=== PATIENT | male | born 1985 | race Two or more races ===

== ENCOUNTER 2017-01-20 09:15 | Inpatient (IN) | payer BC, OTHER ==
[~2017-01-20] VITALS: Ht 193 cm; Wt 119.3 kg
[2017-01-20 10:22] LABS: Basophils # (auto) 0.1 uL; Basophils % (auto) 0.3 % (0.0-2.0); Eosinophils # (auto) 0 uL; Hematocrit 38.4 % (41.0-53.0); Hemoglobin 12.8 g/dL (13.5-17.5); Lymphocytes # (auto) 1.2 uL; Lymphocytes % (auto) 7.3 % (10.0-50.0); Mean Corpuscular Hemoglobin 30.5 pg (28.0-32.0); Mean Corpuscular Hgb Conc. 33.4 g/dL (32.0-36.0); Mean Corpuscular Volume 91.4 fL (80.0-100.0); Mean Platelet Volume 7.9 fL (7.4-10.4); Monocytes # (auto) 0.4 uL; Monocytes % (auto) 2.5 % (0.0-12.0); Neutrophils # (auto) 14.3 uL; Neutrophils % (auto) 89.9 % (37.0-80.0); Platelet Count (auto) 435 10^3/uL (140-450); Red Cell Distribution Width 13.5 % (11.6-16.0)
[2017-01-20] MEDS ORDERED: ONDANSETRON HCL 4 MG/2 ML VIAL ONE (10:35)
[2017-01-20 10:38] LABS: Urine Bilirubin Negative (Negative); Urine Blood Negative /uL (Negative); Urine Color Yellow (Yellow); Urine Glucose Normal (Normal); Urine Mucus FEW (None Seen); Urine Nitrite Negative (Negative); Urine RBC 1 /hpf (0 - 3); Urine Squamous Epithelial Cell FEW /hpf (<5); Urine Urobilinogen Normal (Negative); Urine pH 8.5 (5.0-8.0)
[2017-01-20 10:39] LABS: Urine Ketone 1+ (Negative)
[2017-01-20] MEDS ORDERED: ONDANSETRON HCL 4 MG/2 ML VIAL IV ONE (10:45)
[2017-01-20 10:46] LABS: Albumin 4.5 g/dL (3.4-5.0); Bilirubin, Total 0.4 mg/dL (0.2-1.0); Calcium 9.4 mg/dL (8.5-10.1); Potassium 3.5 mmol/L (3.5-5.1); Total Protein 7.9 g/dL (6.4-8.2)
[2017-01-20] MEDS ORDERED: SODIUM CHLORIDE 0.9% 1,000 ML IVB ONE (11:10)
[2017-01-20 11:36] LABS: INR 0.98 (0.9-1.15); Partial Thromboplastin Time 25.8 sec (22.64-33.71); Prothrombin Time 10.7 sec (9.37-12.3)
[2017-01-20] MEDS ORDERED: MORPHINE SULF INJ 2 MG/ML SYRINGE 1ML IV ONE (11:45)
[2017-01-20] MEDS ORDERED: PANTOPRAZOLE SODIUM 40 MG/10 ML VIAL IV ONE (11:45)
[2017-01-20] MEDS ORDERED: SODIUM CHLORIDE 0.9% 2,000 ML IV ONE (11:45)
[2017-01-20] MEDS ORDERED: LORazepam 2MG/ML-1ML VIAL ONE (12:02)
[2017-01-20] MEDS ORDERED: LORazepam 2MG/ML-1ML VIAL IV ONE (12:15)
[2017-01-20] MEDS ORDERED: DEXTROSE (50%) 50ML SYRG IV PRN (14:15)
[2017-01-20] MEDS ORDERED: cloNIDine HCL 0.1 MG TAB PO PRN (14:15)
[2017-01-20] MEDS ORDERED: cefTRIAXone 1GM/50ML D5W 50 ML IV ONE (14:15)
[2017-01-20] MEDS ORDERED: HYDROcodone-ACET 5/325MG TAB PO PRN (14:30)
[2017-01-20] MEDS ORDERED: ACETAMINOPHEN 325 MG TAB PO PRN (14:30)
[2017-01-20] MEDS ORDERED: TEMAZEPAM 15 MG CAP PO PRN (14:30)
[2017-01-20] MEDS ORDERED: ONDANSETRON HCL 4 MG/2 ML VIAL IV PRN (14:30)
[2017-01-20] MEDS ORDERED: NITROGLYCERIN 0.4 MG SL TAB SL PRN (14:30)
[2017-01-20] MEDS ORDERED: MORPHINE SULF INJ 2 MG/ML SYRINGE 1ML IV PRN (14:30)
[2017-01-20] MEDS: SODIUM CHLORIDE 0.9% 1,000 ML IV SCH ×2 (14:40→17:24)
[2017-01-20] MEDS: MORPHINE SULF INJ 2 MG/ML SYRINGE 1ML IV PRN ×2 (14:40→21:37)
[2017-01-20] MEDS ORDERED: PROMETHAZINE HCL 25 MG/ML 1ML ONE (14:55)
[2017-01-20] MEDS: FAMOTIDINE 20 MG TAB PO SCH ×2 (15:07→21:39)
[2017-01-20] MEDS: PROMETHAZINE HCL 25 MG/ML 1ML IV PRN ×2 (15:07→21:38)
[2017-01-20] MEDS: metroNIDAZOLE 500MG/100ML 100 ML IV SCH ×2 (15:12→21:38)
[2017-01-20] MEDS: ACCU-CHEK COMFORT CURVE STRIP VI SCH ×2 (17:00→21:30)
[2017-01-20] MEDS: InsuLIN REG 1unit/0.01ml Soln (100units/ml) SC SCH ×2 (17:00→21:30)
[2017-01-20] MEDS ORDERED: PROM25TA5 PO (17:38)
[2017-01-20] MEDS ORDERED: DICY10CA12 PO (17:38)
[2017-01-20] MEDS: DICYCLOMINE HCL 10 MG CAP PO SCH ×2 (18:06→21:39)
[2017-01-20 21:43] VITALS: BP 134/60
[2017-01-21] MEDS: PROMETHAZINE HCL 25 MG/ML 1ML IV PRN ×5 (03:41→23:33)
[2017-01-21 04:55] VITALS: BP 119/58
[2017-01-21] MEDS: DICYCLOMINE HCL 10 MG CAP PO SCH ×4 (06:00→22:00)
[2017-01-21] MEDS: metroNIDAZOLE 500MG/100ML 100 ML IV SCH ×3 (06:03→22:35)
[2017-01-21] MEDS: ACCU-CHEK COMFORT CURVE STRIP VI SCH ×4 (06:04→22:00)
[2017-01-21] MEDS: SODIUM CHLORIDE 0.9% 1,000 ML IV SCH ×3 (06:04→23:37)
[2017-01-21] MEDS: InsuLIN REG 1unit/0.01ml Soln (100units/ml) SC SCH ×4 (06:04→22:00)
[2017-01-21 06:55] LABS: Basophils # (auto) 0 uL; Eosinophils # (auto) 0.1 uL; Eosinophils % (auto) 0.4 % (0.0-7.0); Hematocrit 32.3 % (41.0-53.0); Hemoglobin 10.9 g/dL (13.5-17.5); Lymphocytes # (auto) 1.5 uL; Mean Corpuscular Hemoglobin 30.9 pg (28.0-32.0); Mean Corpuscular Hgb Conc. 33.7 g/dL (32.0-36.0); Mean Corpuscular Volume 91.7 fL (80.0-100.0); Mean Platelet Volume 7.9 fL (7.4-10.4); Monocytes % (auto) 6.6 % (0.0-12.0); Neutrophils # (auto) 12.7 uL; Platelet Count (auto) 309 10^3/uL (140-450); Red Cell Distribution Width 13.6 % (11.6-16.0); White Blood Cell 15.3 10^3/uL (4.4-10.8)
[2017-01-21 07:08] LABS: Potassium 3.1 mmol/L (3.5-5.1)
[2017-01-21 07:15] LABS: Albumin 3.4 g/dL (3.4-5.0); BUN/Creatinine Ratio 11.9; Calcium 8.2 mg/dL (8.5-10.1)
[2017-01-21 07:17] LABS: Bilirubin, Total 0.3 mg/dL (0.2-1.0); Total Protein 6.4 g/dL (6.4-8.2)
[2017-01-21 09:00] VITALS: BP 121/71
[2017-01-21] MEDS: MULTIPLE VITAMIN TAB PO SCH (09:17)
[2017-01-21] MEDS: cefTRIAXone 1GM/50ML D5W 50 ML IV SCH (09:17)
[2017-01-21] MEDS: FAMOTIDINE 20 MG TAB PO SCH (09:17)
[2017-01-21] MEDS: MORPHINE SULF INJ 2 MG/ML SYRINGE 1ML IV PRN ×2 (12:49→22:34)
[2017-01-21 13:00] VITALS: BP 176/71
[2017-01-21] MEDS: PANTOPRAZOLE SODIUM 40 MG/10 ML VIAL IV SCH ×2 (14:30→22:35)
[2017-01-21 17:00] VITALS: BP 140/77
[2017-01-21 21:56] VITALS: BP 137/69
[2017-01-22 05:00] VITALS: BP 128/73
[2017-01-22] MEDS: ACCU-CHEK COMFORT CURVE STRIP VI SCH ×4 (06:00→22:08)
[2017-01-22] MEDS: DICYCLOMINE HCL 10 MG CAP PO SCH ×4 (06:00→22:39)
[2017-01-22] MEDS: InsuLIN REG 1unit/0.01ml Soln (100units/ml) SC SCH ×4 (06:00→22:00)
[2017-01-22] MEDS: metroNIDAZOLE 500MG/100ML 100 ML IV SCH (06:11)
[2017-01-22 07:47] LABS: Basophils # (auto) 0 uL; Basophils % (auto) 0.4 % (0.0-2.0); Eosinophils # (auto) 0 uL; Eosinophils % (auto) 0.4 % (0.0-7.0); Hemoglobin 10.5 g/dL (13.5-17.5); Lymphocytes # (auto) 2.9 uL; Lymphocytes % (auto) 27.2 % (10.0-50.0); Mean Corpuscular Hemoglobin 30.9 pg (28.0-32.0); Mean Corpuscular Hgb Conc. 33.8 g/dL (32.0-36.0); Mean Corpuscular Volume 91.4 fL (80.0-100.0); Mean Platelet Volume 7.7 fL (7.4-10.4); Monocytes # (auto) 0.9 uL; Monocytes % (auto) 8.3 % (0.0-12.0); Neutrophils # (auto) 6.9 uL; Neutrophils % (auto) 63.7 % (37.0-80.0); Platelet Count (auto) 287 10^3/uL (140-450); Red Cell Distribution Width 13.3 % (11.6-16.0); White Blood Cell 10.8 10^3/uL (4.4-10.8)
[2017-01-22] MEDS: SODIUM CHLORIDE 0.9% 1,000 ML IV SCH ×2 (07:57→16:17)
[2017-01-22 08:08] LABS: Albumin 3.2 g/dL (3.4-5.0); BUN/Creatinine Ratio 13.3; Potassium 3.1 mmol/L (3.5-5.1)
[2017-01-22 08:12] LABS: Bilirubin, Total 0.3 mg/dL (0.2-1.0); Total Protein 6.4 g/dL (6.4-8.2)
[2017-01-22 09:05] VITALS: BP 120/69
[2017-01-22] MEDS: cefTRIAXone 1GM/50ML D5W 50 ML IV SCH (10:04)
[2017-01-22] MEDS: PANTOPRAZOLE SODIUM 40 MG/10 ML VIAL IV SCH ×2 (10:04→22:02)
[2017-01-22] MEDS: MULTIPLE VITAMIN TAB PO SCH (10:04)
[2017-01-22] MEDS: PROMETHAZINE HCL 25 MG/ML 1ML IV PRN ×2 (10:05→19:53)
[2017-01-22] MEDS: MORPHINE SULF INJ 2 MG/ML SYRINGE 1ML IV PRN ×2 (10:05→19:53)
[2017-01-22 12:12] VITALS: BP 142/83
[2017-01-22] MEDS ORDERED: LIDOCAINE VISCOUS 2% 15ML UD ONE (13:42)
[2017-01-22] MEDS ORDERED: diphenhdrAMINE HCL 50 MG/1 ML VL ONE (13:42)
[2017-01-22] MEDS ORDERED: SODIUM CHLORIDE LOCK 10 ML ONE (13:42)
[2017-01-22] MEDS: MIDAZOLAM HCL 5 MG/ML-1ML VIAL ONE ×2 (14:28→14:31)
[2017-01-22] MEDS: fentaNYL CITRATE 100 MCG/2 ML VL ONE ×2 (14:28→14:31)
[2017-01-22 16:59] VITALS: BP 142/76
[2017-01-22 22:00] VITALS: BP 127/72
[2017-01-23] MEDS: SODIUM CHLORIDE 0.9% 1,000 ML IV SCH ×3 (00:56→17:14)
[2017-01-23 05:00] VITALS: BP 135/81
[2017-01-23] MEDS ORDERED: POTASSIUM CHL 20 Meq TABLET PO ONE (05:15)
[2017-01-23] MEDS: DICYCLOMINE HCL 10 MG CAP PO SCH ×4 (05:43→21:44)
[2017-01-23 06:02] LABS: Basophils # (auto) 0.1 uL; Basophils % (auto) 0.8 % (0.0-2.0); Eosinophils # (auto) 0.4 uL; Eosinophils % (auto) 3.3 % (0.0-7.0); Hemoglobin 11.1 g/dL (13.5-17.5); Lymphocytes # (auto) 2.8 uL; Lymphocytes % (auto) 25.3 % (10.0-50.0); Mean Corpuscular Hemoglobin 30.5 pg (28.0-32.0); Mean Corpuscular Hgb Conc. 33.7 g/dL (32.0-36.0); Mean Corpuscular Volume 90.7 fL (80.0-100.0); Mean Platelet Volume 7.8 fL (7.4-10.4); Monocytes # (auto) 0.7 uL; Monocytes % (auto) 6.4 % (0.0-12.0); Neutrophils # (auto) 7.1 uL; Neutrophils % (auto) 64.2 % (37.0-80.0); Platelet Count (auto) 298 10^3/uL (140-450); Red Cell Distribution Width 13.2 % (11.6-16.0)
[2017-01-23] MEDS: InsuLIN REG 1unit/0.01ml Soln (100units/ml) SC SCH ×4 (06:24→21:44)
[2017-01-23 06:27] LABS: BUN/Creatinine Ratio 10.5; Calcium 7.8 mg/dL (8.5-10.1); Potassium 3.1 mmol/L (3.5-5.1)
[2017-01-23] MEDS: MORPHINE SULF INJ 2 MG/ML SYRINGE 1ML IV PRN ×2 (06:32→12:52)
[2017-01-23] MEDS: PROMETHAZINE HCL 25 MG/ML 1ML IV PRN ×3 (06:32→21:17)
[2017-01-23] MEDS: ACCU-CHEK COMFORT CURVE STRIP VI SCH ×4 (06:33→21:44)
[2017-01-23 09:00] VITALS: BP 140/76
[2017-01-23] MEDS: PANTOPRAZOLE SODIUM 40 MG/10 ML VIAL IV SCH ×2 (09:42→21:43)
[2017-01-23] MEDS: MULTIPLE VITAMIN TAB PO SCH (09:43)
[2017-01-23 12:40] VITALS: BP 146/77
[2017-01-23 17:00] VITALS: BP 150/92
[2017-01-23 20:00] VITALS: BP 138/80
[2017-01-23 22:00] VITALS: BP 138/80
[2017-01-24] MEDS: SODIUM CHLORIDE 0.9% 1,000 ML IV SCH ×4 (01:37→22:00)
[2017-01-24] MEDS: DICYCLOMINE HCL 10 MG CAP PO SCH ×4 (05:59→22:10)
[2017-01-24 06:00] VITALS: BP 133/76
[2017-01-24] MEDS: ACCU-CHEK COMFORT CURVE STRIP VI SCH ×3 (06:51→17:00)
[2017-01-24] MEDS: InsuLIN REG 1unit/0.01ml Soln (100units/ml) SC SCH ×3 (06:51→17:00)
[2017-01-24 07:10] LABS: Basophils # (auto) 0 uL; Basophils % (auto) 0.6 % (0.0-2.0); Eosinophils # (auto) 0.5 uL; Eosinophils % (auto) 5.8 % (0.0-7.0); Hematocrit 35.4 % (41.0-53.0); Hemoglobin 11.9 g/dL (13.5-17.5); Lymphocytes # (auto) 3.2 uL; Lymphocytes % (auto) 38.1 % (10.0-50.0); Mean Corpuscular Hemoglobin 30.6 pg (28.0-32.0); Mean Corpuscular Hgb Conc. 33.7 g/dL (32.0-36.0); Mean Corpuscular Volume 90.7 fL (80.0-100.0); Mean Platelet Volume 8.1 fL (7.4-10.4); Monocytes # (auto) 0.6 uL; Neutrophils % (auto) 48.5 % (37.0-80.0); Platelet Count (auto) 324 10^3/uL (140-450); Red Cell Distribution Width 13.5 % (11.6-16.0); White Blood Cell 8.3 10^3/uL (4.4-10.8)
[2017-01-24 08:19] LABS: BUN/Creatinine Ratio 6.7; Calcium 8.2 mg/dL (8.5-10.1); Potassium 3.1 mmol/L (3.5-5.1)
[2017-01-24 09:00] VITALS: BP 133/85
[2017-01-24] MEDS: MULTIPLE VITAMIN TAB PO SCH (10:10)
[2017-01-24] MEDS: PANTOPRAZOLE SODIUM 40 MG/10 ML VIAL IV SCH ×2 (10:11→22:10)
[2017-01-24] MEDS: PROMETHAZINE HCL 25 MG/ML 1ML IV PRN ×3 (10:28→22:31)
[2017-01-24 12:45] VITALS: BP 133/79
[2017-01-24 17:00] VITALS: BP 142/73
[2017-01-24] MEDS: POTASSIUM CHL 20 Meq TABLET PO SCH ×2 (18:16→22:10)
[2017-01-24 22:00] VITALS: BP 119/74
[2017-01-24] MEDS ORDERED: POTASSIUM CHL 20 Meq TABLET PO ONE (22:01)
[2017-01-25 05:55] LABS: Basophils # (auto) 0.1 uL; Basophils % (auto) 0.6 % (0.0-2.0); Eosinophils # (auto) 0.6 uL; Hematocrit 37.5 % (41.0-53.0); Hemoglobin 12.4 g/dL (13.5-17.5); Lymphocytes # (auto) 3.1 uL; Lymphocytes % (auto) 35.4 % (10.0-50.0); Mean Corpuscular Hemoglobin 30.2 pg (28.0-32.0); Mean Corpuscular Hgb Conc. 33.2 g/dL (32.0-36.0); Mean Corpuscular Volume 91.1 fL (80.0-100.0); Mean Platelet Volume 7.9 fL (7.4-10.4); Monocytes # (auto) 0.6 uL; Monocytes % (auto) 7.4 % (0.0-12.0); Neutrophils # (auto) 4.3 uL; Neutrophils % (auto) 49.6 % (37.0-80.0); Platelet Count (auto) 340 10^3/uL (140-450); Red Cell Distribution Width 13.6 % (11.6-16.0); White Blood Cell 8.7 10^3/uL (4.4-10.8)
[2017-01-25] MEDS: DICYCLOMINE HCL 10 MG CAP PO SCH ×3 (05:59→18:00)
[2017-01-25 06:00] VITALS: BP 126/76
[2017-01-25 06:12] LABS: Potassium 3.6 mmol/L (3.5-5.1)
[2017-01-25 06:17] LABS: BUN/Creatinine Ratio 6.6; Calcium 8.4 mg/dL (8.5-10.1)
[2017-01-25 09:00] VITALS: BP 128/83
[2017-01-25] MEDS: PANTOPRAZOLE SODIUM 40 MG/10 ML VIAL IV SCH ×2 (09:24→09:26)
[2017-01-25] MEDS: MULTIPLE VITAMIN TAB PO SCH ×2 (09:24→09:26)
[2017-01-25] MEDS: SODIUM CHLORIDE 0.9% 1,000 ML IV SCH (10:57)
[2017-01-25 13:00] VITALS: BP 139/72
[2017-01-25] MEDS ORDERED: PANT40TA2 PO (16:14)
[2017-01-25 16:46] VITALS: BP 139/72
[2017-01-25 17:00] VITALS: BP 138/83
== END 2017-01-25 18:15 | disposition home or self-care (01) | DRG 872 ==
LOC: ER 09:15 → TELE 09:16 → TELE-E-ADS 15:47 → TELE-WESTW 17:12
PROVIDERS: ADMIT Internal Medicine; ATTEND Nurse Practitioner Acute Care
PROC: 0DB68ZX Excision of Stomach, Via Natural or Artificial Opening Endoscopic, Diagnostic (ICD-10-PCS; principal; 2017-01-22 14:25)
DX: A41.9 Sepsis, unspecified organism (principal); K86.1 Other chronic pancreatitis; D63.8 Anemia in other chronic diseases classified elsewhere; E11.9 Type 2 diabetes mellitus without complications; E86.0 Dehydration; E87.6 Hypokalemia; I10 Essential (primary) hypertension; Z82.49 Family history of ischemic heart disease and other diseases of the circulatory system; Z83.3 Family history of diabetes mellitus; F12.90 Cannabis use, unspecified, uncomplicated; K20.9 Esophagitis, unspecified; K29.70 Gastritis, unspecified, without bleeding; K29.80 Duodenitis without bleeding
CPT/HCPCS: 36415; 43239; 71010; 74176; 80048; 80053; 80320; 81001; 82150; 82962; 83036; 83690; 83735; 84132; 85025; 85610; 85730; 87040; 87045; 87493; 87899; 93005; 94761; 96361; 96365; 96375; C9113; J0696; J2250; J2405; J3490